=== PATIENT | male | born 1970 | race Caucasian/White ===

== ENCOUNTER → 2022-07-02 13:05 | Outpatient (BNVA) | payer BC, SELFPAY | PROVIDERS: PCP Internal Medicine; Visit Provider Psychiatry & Neurology Psychiatry | DX: Z13.89 Encounter for screening for other disorder (principal) ==

== ENCOUNTER 2023-02-18 13:50 | Outpatient (AMB) | payer BC, SELFPAY ==
--- NOTE | 2023-02-18 12:57 | MHC.OFFVISPS ---
Intake Intake Visit Reasons: depression Allergies ofloxacin [From FLOXIN] Allergy (Severe, Unverified 12/06/19 16:55) hallucinations Medication List - Last Reconciled 02/18/23 by Colin Hunt MD buspirone 15 mg PO DAILY clomipramine 25 mg PO BEDTIME HPI- Psychiatric Chief Complaint: depression HPI Narrative: Pt seen in f/u taking clomip 25 hs buspar 15 mg seems stable some cking issues at times he is much more cut off from worries re remains social ocd generally in ck relationships are appropriate no impulses does use social media has never finured out sexuality some periods of depression Sees dr liliam burch anxiety related issues Past Psychiatric History: Past history of psychiatric hospitalizations requiring ECT in the past history of severe depression and severely impairing OCD in the past Mental Status Exam Mental Status Exam Narrative: Mental Status Exam Narrative: Appearance: Casually dressed Behavior: Cooperative appropriate psychomotor: Within normal limits Speech: Normal volume and prosody Thought proccess logical and goal-directed Thought content: Future oriented no self-harming thoughts some regretful thoughts about his orientation have impacted his life Mood: flat Affect: Appropriate to mood full affect SI:denies HI:denies VH/AH:none Delusions: None Insight/judgment: Good insight and judgment Memory/cog: Intact Telehealth Telehealth Location of provider rendering services: practice address Location of patient: address on file Patient Identification confirmed using: Name, : Yes Telehealth method: video Patient verbally consented to treatment: Yes Patient verbally consented to billing insurance company: Yes Minutes spent on Phone/Video with Pt.: 29 Assessment and Plan Assessment & Plan (1) OCD (obsessive compulsive disorder): Status: Acute Code(s): F42.9 - Obsessive-compulsive disorder, unspecified (2) Major depression in full remission: Status: Acute Code(s): F32.5 - Major depressive disorder, single episode, in full remission Plan pt generally stable cont low-dose buspirone low-dose of Afrin ill patient does feel it is somewhat helpful as does not wish to dis continue Counseling and coordination of Care Pt. Self Management counseling: Maintenance-social rhythm, Sleep hygiene and Behavior activation Details-Self Mgmt counseling: Discussed issues related to object relations patient's identity and its affect on his life Details: I spent [] minutes reviewing the record, seeing the patient and documenting in the medical record. Counseling provided to the patient/caregiver as outlined below. Addressed patient/caregiver concerns regarding current medication regime including effective adherence. Addressed patient/caregiver concerns regarding diagnosis and prognosis including accuracy of diagnosis, prognosis over time, impact of diagnosis. Addressed patient/caregiver concerns regarding impact of recent stressors. [facility] Medical History (Updated 07/02/22 @ 16:08 by Colin Hunt MD) Major depression in full remission OCD (obsessive compulsive disorder) CKD (chronic kidney disease) SIADH (syndrome of inappropriate ADH production) Social History: works remotely not no child uncle 5 children Substance History: hx alcohol abuse Trauma History: none Coding Level of Care Code Est Pt Level 3 (74239) Therapy 30m w/E&M (15945) Diagnoses OCD (obsessive compulsive disorder) F42.9 Major depression in full remission F32.5
== END 2023-02-18 13:52 | disposition home or self-care (01) ==
LOC: HO.HOP 13:50
PROVIDERS: PCP Internal Medicine; Visit Provider Psychiatry & Neurology Psychiatry
DX: F42.9 Obsessive-compulsive disorder, unspecified (principal); F32.5 Major depressive disorder, single episode, in full remission
CPT/HCPCS: 90833; 99213

== ENCOUNTER → 2023-02-18 13:50 | Outpatient (BNVA) | payer BC, SELFPAY | PROVIDERS: PCP Internal Medicine; Visit Provider Psychiatry & Neurology Psychiatry ==

== ENCOUNTER 2023-09-06 14:07 | Outpatient (AMB) | payer BC, SELFPAY ==
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
== END 2023-09-06 15:09 | disposition home or self-care (01) ==
LOC: HO.HOP 14:07
PROVIDERS: PCP Internal Medicine; Visit Provider Psychiatry & Neurology Psychiatry
DX: F32.5 Major depressive disorder, single episode, in full remission (principal); F42.9 Obsessive-compulsive disorder, unspecified; N18.9 Chronic kidney disease, unspecified; F41.1 Generalized anxiety disorder
CPT/HCPCS: 90833; 99213

== ENCOUNTER → 2023-09-06 14:07 | Outpatient (BNVA) | payer BC, SELFPAY | PROVIDERS: PCP Internal Medicine; Visit Provider Psychiatry & Neurology Psychiatry ==

== ENCOUNTER 2024-04-16 14:02 | Outpatient (AMB) | payer BC, SELFPAY ==
--- NOTE | 2024-04-16 14:44 | MHC.OFFVISPS ---
Intake Intake Visit Reasons: depression Allergies ofloxacin [From FLOXIN] Allergy (Severe, Unverified 12/06/19 16:55) hallucinations Medication List - Last Reconciled 04/16/24 by Colin Hunt MD buspirone 15 mg PO DAILY clomipramine 25 mg PO BEDTIME HPI- Psychiatric Chief Complaint: depression HPI Narrative: Patient seen psychiatric follow-up. The patient did have a significant episode of obsessional anxiety catastrophic thinking related to recent election. This lasted a number of weeks and spontaneously remitted. He does still see Dr. Demetrius Fink On 1 of the medications he was on vacation with his family had a sense of derealization on reality intrusive thoughts which he did not wish to fully elucidate. He stated these remitted. Patient has stayed on BuSpar 15 mg daily clomipramine 25 mg bedtime we have discussed this may not be a therapeutic dose Past Psychiatric History: Past history of psychiatric hospitalizations requiring ECT in the past history of severe depression and severely impairing OCD in the past Mental Status Exam Mental Status Exam Patient Appearance: Well Grooomed Patient Orientation: Person, Place, Time and Situation Level of Consciousness: Awake and Appropriate Patient Behavior: Appropriate Mood Description: Calm and Anxious Affect Description: Apathetic and Constricted Ability to Follow Directions: Excellent Speech Pattern: Clear Memory Description: Intact Hallucinations: None Delusions: Not Present Judgement: Good Assessment and Plan Assessment & Plan (1) OCD (obsessive compulsive disorder): Status: Acute Code(s): F42.9 - Obsessive-compulsive disorder, unspecified Plan consider luvox if symptoms were to recur discussed that present dosing is not really most likely in the therapeutic range he did not wish to increase dosing felt he had side effects on increase clomipramine in the past. He did L multiple antidepressant treatments in the past. At 1 point he did require ongoing ECT including maintenance Medications: Refilled buspirone 15 mg PO DAILY 90 tabs 1RF clomipramine 25 mg PO BEDTIME 90 caps 1RF Counseling and coordination of Care Details-Self Mgmt counseling: Issues related to managing intrusive anxiety and this diagnosis Medication management counseling: Effectiveness, Side effects and Dosing range Diagnosis and Prognosis Counseling: Impact of diagnosis on life functions, Problematic behaviors secondary to diagnosis and Adequacy of current interventions Details: I spent [40] minutes reviewing the record, seeing the patient and documenting in the medical record. Counseling provided to the patient/caregiver as outlined below. Addressed patient/caregiver concerns regarding current medication regime including effective adherence. Addressed patient/caregiver concerns regarding diagnosis and prognosis including accuracy of diagnosis, prognosis over time, impact of diagnosis. Addressed patient/caregiver concerns regarding impact of recent stressors. [facility] Medical History (Updated 09/06/23 @ 14:34 by Colin Hunt MD) Generalized anxiety disorder Major depression in full remission OCD (obsessive compulsive disorder) CKD (chronic kidney disease) SIADH (syndrome of inappropriate ADH production) Social History: works remotely not no child uncle 5 children Substance History: hx alcohol abuse Trauma History: none Coding Level of Care Code Est Pt Level 3 (05671) Therapy 30m w/E&M (21153) Diagnoses OCD (obsessive compulsive disorder) F42.9
--- OUTSIDE RECORDS SUMMARY | 2024-04-16 18:32 | XMS_ITS | Clinical Summary ---
Author Organization [facility] [employer] Address [address] [facility] [place] [address] Care Team Providers Care Crewman Armoured Personnel Carrier M113 Name Role Phone Fito Martino MD Primary Care Provider [phone] Allergies No known active allergies Medications busPIRone (BUSPAR) 15 MG tablet 04/01/2023 Active cholecalciferol , vitamin D3, 50 mcg (2,000 unit) Take by mouth Active clomiPRAMINE (ANAFRANIL) 25 MG capsule Take 1 capsule (25 mg total) by mouth 02/07/2019 Active HYDROcodone-jann atropine (HYCODAN) 5-1.5 mg/5 mL syrup TAKE 5 ML BY MOUTH EVERY 8 (EIGHT) HOURS NEEDED. PT. MAY REQUEST PARTIAL FILL 02/25/2023 Active mometasone (NASONEX) 50 mcg/actuation nasal spray Instill 2 sprays into each nostril 05/07/2020 Active Immunizations Name Administration Dates Next Due Flublok Trivalent Prefilled Syringe (18+ years) 01/23/2020 Flucelvax Trivalent PFS IM; Without Preservative (18+ mos) 01/24/2018 Fluzone Trivalent Prefilled Syringe (18+ months) 04/02/2023 Moderna Spikevax Covid-19 SDV (12+years) 024 Social History Tobacco Use Types Packs/Day Years Used Date Smoking Tobacco: Never Smokeless Tobacco: Never Sex and Gender Information Value Date Recorded Sex Assigned at Not on file Legal Sex Male 1:58 PM EST Gender Identity Not on file Sexual Orientation Not on file Last Filed Vital Signs Vital Sign Reading Time Taken Comments Blood Pressure - - Pulse 78 11/10/2020 10:10 AM EDT Temperature 36.5 ??C (97.7 ??F) 11/10/2020 10:10 AM E DT Respiratory Rate - - Oxygen Saturation 100% 11/10/2020 10:10 AM EDT Inhaled Oxygen Concentration - - Weight - - Height - - Body Mass Index - - Plan of Treatment Health Maintenance Due Date Last Done Comments Colorectal Cancer: COLONOSCOPY Screening every 10 yrs (or Modifier) 1969 Depression: Screening Annually using PHQ-2/9 in Adults 18 yrs or above (or HM Modifier)([facility]) 08/08/1987 SDOH Screening Reminder: Annually for all adults ([facility]) 08/08/1987 Tobacco Smoking Cessation: i n Adults excluding Women: Behavioral and Pharmacotherapy Interventions ([facility]) 08/08/1987 Colorectal Cancer Screening 45 -75 Yrs (or HM Modifier) 2014 Colorectal Cancer: FLEXIBLE SIGMOIDOSCOPY Screening every 5 yrs 2014 Colorectal Cancer: Fecal Immunochemical Test (FIT) Annually [facility] 2014 Colorectal Cancer: High-sensitivity gFOBT Screening Annually [facility] 2014 Colorectal Cancer: Stool Cologuard Screening every 3 yrs 2014 Colorectal Cancer:CT Colonography Screening every 5 yrs 2014 Zoster/Shingles Vaccine Series Screening: Adults aged 18+ yrs (or HM Modifiers)([facility]) (1 of 2) 08/08/2019 DTaP/Tdap/Td Vaccines ([facility]) (2 - Td or Tdap) 09/14/2023 09/13/2013 Flu Vaccination: Yearly for ages 18mos through 64 years (or Modifier)([facility]) 10/20/2023 04/02/2023, 01/26/2022, 01/23/2020, Additional history exists COVID-19 Vaccine Screening: Initial Series and Booster Status ([facility]) (2023- season) 2023 04/02/2023, 07/26/2020, 06/25/2020 Lipid Screening: Every 5 yrs for Men aged 35+ (or HM Modifier) ([facility]) 10/06/2027 10/05/2022 Hepatitis C Virus Infection in Adolescents and Adults: Screening (or Modifier) ([facility]) Completed 10/05/2022 Pneumococcal Vaccination Screening: Pts 0-19 & 19-64 yrs of age ([facility]) Aged Out No longer eligible based on patient's age to complete this topic Medical Devices Not on file Insurance [facility] Care Teams Crewman Armoured Personnel Carrier M113 Relationship Specialty Start Date End Date Fito Martino MD [address] [id number] PCP - Produce Team Member 01/24/18
--- OUTSIDE RECORDS SUMMARY | 2024-04-16 18:32 | XMS_ITS | Clinical Summary ---
Author Organization [facility], Address [address] [facility] [address] [place] [address] Phone Care Team Providers Care Experimental Rocket Sled Mechanic Name Role Phone Fito Martino MD Primary Care Provider [phone] Allergies Active Allergy Reactions Criticality Noted Date Comments Ciprofloxacin Other (see comments) High 06/18/2016 Other reaction(s): Hallucinations Ofloxacin Other (see comments) 05/03/2019 Medications busPIRone (BUSPAR) 15 MG tablet 0 Active clomiPRAMINE (ANAFRANIL) 25 MG capsule 9 Active mometasone (Nasonex) 50 MCG/ACT nasal spray Administer 2 sprays into each nostril 1 (one) time each day 17 g 11 1 Active Cholecalciferol 50 MCG (2000 UT) capsule Take by mouth daily Active Active Problems Problem Noted Date Diagnosed Date Essential (primary) hypertension 10/31/2023 Renal failure syndrome 10/06/2021 Stage 3a chronic kidney disease 05/07/2020 Hypo-osmolality and hyponatremia 10/25/2019 Vitamin D deficiency 02/28/2017 Overview (05/03/2019): Last Assessment & Plan: He often forgets to take it. I reminded him to get back on it. Resolved Problems Problem Noted Date Diagnosed Date Resolved Date Sinusitis 05/07/2020 09/11/2020 Chronic low back pain 12/21/20182020 Overview (05/03/2019): Needs PT. Work on ergonomics on the job Shoulder pain 03/28/2018 04/25/2020 Chronic kidney disease stage 3 02/28/2017 09/11/2020 Depressive disorder 02/28/2017 04/25/19 21 Overview (05/03/2019): Had transcranial magnet and ECT therapy. Sees dr Gt Hunt for psychiatry Last Assessment & Plan: Medically stable for ECT. Dyslipidemia 02/28/2017 09/11/2020 Overview (05/03/2019): Last Assessment & Plan: recheck Gastroesophageal reflux disease 02/28/2017 04/25/2020 Hypochondriasis 02/28/2017 04/25/2020 Lymphedema 02/28/2017 09/11/2020 Overview (05/03/2019): Since his teenager years, dx at [facility] Last Assessment & Plan: Stable, uses compression stockings. 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 (05/03/2019): Osteochondritis dissecans Immunizations Name Administration Dates Next Due Influenza (IM) Preservative Free 02/06/2016 Influenza Split High Dose Preservative Free IM 1 Influenza, MDCK, PF, Quadrivalent 01/24/2018 Influenza, Quadrivalent, Preservative Free 04/19,04/07/2012 Influenza, Recombinant, Quadrivalent, Pf 020,12/21/2018 Moderna SARS-COV-2 07/26/2020,06/25/2020 Tdap 09/13/2013 Family History Medical History Relation Comments Cancer Father lung Dementia Father grandparents Hypertension Father Heart disease Mother grandfather Hypertension Mother grandmother Relation Status Comments Father Mother Alive Social History Tobacco Use Types Packs/Day Years Used Date Smoking Tobacco: Never Alcohol Use Standard Drinks/Week Comments No 0 (1 standard drink = 0.6 oz pure alcohol) Alcoholic Drinks/day: 3 or more drinks per day Sex and Gender Information Value Date Recorded Sex Assigned at Not on file Legal Sex Male 4:36 PM EST Gender Identity Not on file Sexual Orientation Not on file Last Filed Vital Signs Vital Sign Reading Time Taken Comments Blood Pressure 110/70 05/03/2019 1:55 PM EST Pulse - - Temperature - - Respiratory Rate - - Oxygen Saturation - - Inhaled Oxygen Concentration - - Weight 90.7 kg (200 lb) 05/03/2019 1:55 PM EST Height 182.9 cm (6') 11/02/2018 12:00 PM EDT Body Mass Index 27.12 11/02/2018 12:00 PM EDT Plan of Treatment Health Maintenance Due Date Last Done Comments Pneumococcal Vaccine: Pediat rics (0 to 5 Years) and At-Risk Patients (6 to 64 Years) (1 of 2 - PCV) 08/08/1975 Hepatitis B Vaccine (1 of 3 - 19+ 3-dose series) 1988 Colorectal Cancer Screening: Annual FOBT 2018 Colorectal Cancer Screening: Colonoscopy 2018 Colorectal Cancer Screening: Sigmoidoscopy 2018 Influenza Vaccine (#1) 2023 4, 01/26/2022, 01/23/2020, Additional history exists Insurance [facility] Care Teams Experimental Rocket Sled Mechanic Relationship Specialty Start Date End Date Fito Martino MD [address] [place] [address], [address] [place] [address] PCP - General 01/23/19
--- OUTSIDE RECORDS SUMMARY | 2024-04-16 18:32 | XMS_ITS | Encounter Summary ---
Author Organization [facility], Address [address] [place] [address] Phone Care Team Providers Care Storage And Backup Administrator Name Role Phone Fito Martino MD Primary Care Provider [phone] Encounter Details Date Type Department Care Team (Late st Contact Info) Description 10/08/2021 Office Communication [facility], [address] [place] [phone] Benito Peck MD [address] [place] [phone] Social History Tobacco Use Types Packs/Day Years [...] on file Sexual Orientation Not on file COVID-19 Exposure Response Date Recorded In the last 10 days, have yo u been in contact with someone who was confirmed or suspected to have Coronavirus/COVID-19? No / Unsure 10/08/2021 2:20 PM EDT documented as of this encounter Miscellaneous Notes * Telephone Encounter - Tracy Shahid - 10/09/2021 12:25 PM EDT done documented in this encounter Plan of Treatment Not on file documented as of this encounter Visit Diagnoses Not on filedocumented in this encounter Care Teams Storage And Backup Administrator Relationship Specialty Start Date End Date Fito Martino MD [address] [place] [address], [address] [place], [place] [phone] PCP - General 01/23/19 documented as of this encounter
== END 2024-04-16 14:36 | disposition home or self-care (01) ==
LOC: HO.HOP 14:02
PROVIDERS: PCP Internal Medicine; Visit Provider Psychiatry & Neurology Psychiatry
DX: F42.9 Obsessive-compulsive disorder, unspecified (principal)
CPT/HCPCS: 90833; 99213

== ENCOUNTER → 2024-04-16 14:02 | Outpatient (BNVA) | payer BC, SELFPAY | PROVIDERS: PCP Internal Medicine; Visit Provider Psychiatry & Neurology Psychiatry ==

== ENCOUNTER 2024-07-30 15:33 | Outpatient (AMB) | payer BC, SELFPAY ==
--- NOTE | 2024-07-30 13:58 | MHC.OFFVISPS ---
Intake Intake Visit Reasons: depression Allergies ofloxacin [From FLOXIN] Allergy (Severe, Unverified 12/06/19 16:55) hallucinations HPI- Psychiatric Chief Complaint: depression HPI Narrative: Pt anafranil inc 50 mg buspar 15 bid last appointment has had increased intrusive OCD anxiety symptoms. He is worried he would need ECT again. This did help significantly in the past. Patient has talk with work regarding some increase in symptoms no SI but has been interfering with work. He is seeing a new OCD type therapist which has a different process than traditional CBT. Patient had [place] Bactrim of different classes Past Psychiatric History: Past history of psychiatric hospitalizations requiring ECT in the past history of severe depression and severely impairing OCD in the past Mental Status Exam Mental Status Exam Narrative: Mental Status Exam Narrative: Appearance: Casually dressed somewhat sad looking Behavior: Cooperative appropriate psychomotor: Within normal limits Speech: Normal volume and prosody Thought proccess logical and goal-directed perseverative Thought content: Future oriented no self-harming thoughts intrusive thoughts that he may be arrested catastrophic intrusive thoughts Mood: anxious Affect: Appropriate to mood constricted SI:denies sense of hopelessness at times HI:denies VH/AH:none Delusions: None has overvalued ideas Insight/judgment: Good insight and judgment Memory/cog: Intact Telehealth Telehealth Telehealth Platform: [facility] Location of provider rendering services: practice address Location of patient: address on file Patient Identification confirmed using: Name, : Yes Telehealth method: video Patient verbally consented to treatment: Yes Patient verbally consented to billing insurance company: Yes Minutes spent on Phone/Video with Pt.: 31 Assessment and Plan Assessment & Plan (1) OCD (obsessive compulsive disorder): Status: Acute Code(s): F42.9 - Obsessive-compulsive disorder, unspecified Plan Pt resistant to inc medication secondary to lack of sexual fx has intrusive anxious ruminations related to past material that he had seen on a computer of his many many years ago. This is recurrence for prior obsessional fear. His trying a new type of OCD psychotherapy he is still seeing Demetrius Fink. Continues to work remotely. His mother had also recent L which may have triggered some symptoms increase Anafranil different 50 mg daily Viagra prescribed risks benefits alternatives reviewed potential side effects reviewed. BuSpar increased to b.i.d. Medications: New lorazepam 0.5 - 1 mg (0.5 - 1 x 1 mg) PO DAILY PRN 14 tabs 0RF anxiety sildenafil (Viagra) administer 30 minutes to 4 hours before activity 25 mg PO DAILY PRN 14 tabs 1RF sexual activity Changed From clomipramine 25 mg PO BEDTIME 90 caps 1RF To clomipramine 50 mg (2 x 25 mg) PO BEDTIME 60 caps 1RF From buspirone 15 mg PO DAILY 90 tabs 1RF To buspirone 15 mg PO BID 180 tabs 1RF Counseling and coordination of Care Details-Self Mgmt counseling: Issues related to accepting treatment dealing with the of hopelessness helplessness Medication management counseling: Effectiveness, Side effects and Dosing range Diagnosis and Prognosis Counseling: Impact of diagnosis on life functions, Problematic behaviors secondary to diagnosis and Adequacy of current interventions Details: I spent [40] minutes reviewing the record, seeing the patient and documenting in the medical record. Counseling provided to the patient/caregiver as outlined below. Addressed patient/caregiver concerns regarding current medication regime including effective adherence. Addressed patient/caregiver concerns regarding diagnosis and prognosis including accuracy of diagnosis, prognosis over time, impact of diagnosis. Addressed patient/caregiver concerns regarding impact of recent stressors. [facility] Medical History (Updated 09/06/23 @ 14:34 by Colin Hunt MD) Generalized anxiety disorder Major depression in full remission OCD (obsessive compulsive disorder) CKD (chronic kidney disease) SIADH (syndrome of inappropriate ADH production) Social History: works remotely not no child uncle 5 children Substance History: hx alcohol abuse Trauma History: none Coding Level of Care Code Est Pt Level 4 (80579) Diagnoses OCD (obsessive compulsive disorder) F42.9
--- OUTSIDE RECORDS SUMMARY | 2024-07-30 15:35 | XMS_ITS | Encounter Summary ---
Author Organization [facility], Address [address] [place] [address] Phone Care Team Providers Care Outpatient Clerk Name Role Phone Fito Martino MD Primary Care Provider [phone] Encounter Details Date Type Department Care Team (Late st Contact Info) Description 10/08/2021 Office Communication [facility], [address] [phone] Benito Peck MD [address] [place] [phone] Social History Tobacco Use Types Packs/Day Years [...] on filedocumented in this encounter Care Teams Outpatient Clerk Relationship Specialty Start Date End Date Fito Martino MD [address] [place] [address], [address] [place], [place] [phone] PCP - General 01/23/19 documented as of this encounter
--- OUTSIDE RECORDS SUMMARY | 2024-07-30 15:35 | XMS_ITS | Clinical Summary ---
Author Organization [facility], Address [address] [place] [address] Phone Care Team Providers Care Seismograph Helper Name Role Phone Fito Martino MD Primary Care Provider [phone] Allergies Active Allergy Reactions Criticality Noted Date [...] (05/03/2019): Since his teenager years, dx at [facility]. Last Assessment & Plan: Stable, uses compression stockings. 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 (05/03/2019): Osteochondritis dissecans Immunizations Immunization Administration Dates Next Due Influenza (IM) Preservative [...] Health Maintenance Due Date Last Done Comments Hepatitis B Vaccine (1 of 3 - 19+ 3-dose series) 1988 Pneumococcal Vaccine: 50+ Ye ars (1 of 2 - PCV) 1988 Colorectal Cancer Screening: Annual FOBT 2018 Colorectal Cancer Screening: Colonoscopy 2018 Colorectal Cancer Screening: Sigmoidoscopy 2018 Influenza Vaccine (Season Ended) 2024 04/02/2023, 01/26/2022, 01/23/2020, Additional history exists Insurance [facility] Care Teams Seismograph Helper Relationship Specialty Start Date End Date Fito Martino MD [address], [address] [place], [place] [id number] PCP - General 01/23/19
== END 2024-07-30 15:35 | disposition home or self-care (01) ==
LOC: HO.HOP 15:33
PROVIDERS: PCP Internal Medicine; Visit Provider Psychiatry & Neurology Psychiatry
DX: F42.9 Obsessive-compulsive disorder, unspecified (principal)
CPT/HCPCS: 99214

== ENCOUNTER → 2024-07-30 15:33 | Outpatient (BNVA) | payer BC, SELFPAY | PROVIDERS: PCP Internal Medicine; Visit Provider Psychiatry & Neurology Psychiatry ==

== ENCOUNTER 2024-10-17 17:36 | Outpatient (AMB) | payer BC, SELFPAY ==
--- NOTE | 2024-10-17 14:41 | MHC.OFFVISPS ---
Intake Intake Visit Reasons: depression Allergies ofloxacin (From FLOXIN) Allergy (Severe, Unverified 12/06/19 16:55) hallucinations HPI- Psychiatric Chief Complaint: depression HPI Narrative: 07/30/24 Pt anafranil inc 50 mg buspar 15 bid last appointment has had increased intrusive OCD anxiety symptoms. He is worried he would need ECT again. This did help significantly in the past. Patient has talk with work regarding some increase in symptoms no SI but has been interfering with work. He is seeing a new OCD type therapist which has a different process than traditional CBT. Patient had failed [place] of [place] Bactrim of different classes Past Psychiatric History: Past history of psychiatric hospitalizations requiring ECT in the past history of severe depression and severely impairing OCD in the past Mental Status Exam Mental Status Exam Narrative: Mental Status Exam Narrative: Appearance: Casually dressed Behavior: Cooperative appropriate psychomotor: Within normal limits Speech: Normal volume and prosody Thought proccess logical and goal-directed perseverative Thought content: Future oriented no self-harming thoughts no longer having the intrusive catastrophic thoughts Mood: Blunted Affect: Appropriate to mood constricted SI:denies sense of hopelessness at times HI:denies VH/AH:none Delusions: None has overvalued ideas Insight/judgment: Good insight and judgment Memory/cog: Intact Telehealth Telehealth Telehealth Platform: [facility] Location of provider rendering services: practice address Location of patient: address on file Patient Identification confirmed using: Name, : Yes Telehealth method: video Patient verbally consented to treatment: Yes Patient verbally consented to billing insurance company: Yes Minutes spent on Phone/Video with Pt.: 29 Assessment and Plan Assessment & Plan (1) OCD (obsessive compulsive disorder): Status: Acute Code(s): F42.9 - Obsessive-compulsive disorder, unspecified Plan Patient will continue on clomipramine unclear why he has cycled he likes to continue on clomipramine 50 BuSpar 15 b.i.d. lorazepam PRN. Patient aware of hypo orthostatic hypotension possibilities with Anafranil continue present plan of care Medications: Changed From clomipramine 50 mg (2 x 25 mg) PO BEDTIME 60 caps 1RF To clomipramine 50 mg (2 x 25 mg) PO BEDTIME 180 caps 1RF 90 days Refilled buspirone 15 mg PO BID 180 tabs 1RF lorazepam 0.5 - 1 mg (0.5 - 1 x 1 mg) PO DAILY PRN 20 tabs 1RF anxiety Discontinued sildenafil administer 30 minutes to 4 hours before activity Discontinued Reason: Doctor's Order 25 mg PO DAILY PRN 14 tabs 1RF sexual activity Counseling and coordination of Care Pt. Self Management counseling: Breathing and Cognitive restructuring Details-Self Mgmt counseling: Issues related to managing condition maintaining quality of life and the varied nature of when he goes into remission Medication management counseling: Effectiveness, Side effects and Dosing range Diagnosis and Prognosis Counseling: Accuracy of diagnosis and Impact of diagnosis on life functions Details: I spent [38] minutes reviewing the record, seeing the patient and documenting in the medical record. Counseling provided to the patient/caregiver as outlined below. Addressed patient/caregiver concerns regarding current medication regime including effective adherence. Addressed patient/caregiver concerns regarding diagnosis and prognosis including accuracy of diagnosis, prognosis over time, impact of diagnosis. Addressed patient/caregiver concerns regarding impact of recent stressors. [facility] Medical History (Updated 09/06/23 @ 14:34 by Colin Hunt MD) Generalized anxiety disorder Major depression in full remission OCD (obsessive compulsive disorder) CKD (chronic kidney disease) SIADH (syndrome of inappropriate ADH production) Social History: works remotely not no child uncle 5 children Substance History: hx alcohol abuse Trauma History: none Coding Level of Care Code Tele Est Pt Level 3 (98386) Therapy 30m w/E&M (09973) Diagnoses OCD (obsessive compulsive disorder) F42.9
== END 2024-10-17 17:36 | disposition home or self-care (01) ==
LOC: HO.HOP 17:36
PROVIDERS: PCP Internal Medicine; Visit Provider Psychiatry & Neurology Psychiatry
DX: F42.9 Obsessive-compulsive disorder, unspecified (principal)
CPT/HCPCS: 90833; 99213

== ENCOUNTER 2025-03-08 17:16 | Outpatient (AMB) | payer BC, SELFPAY ==
--- NOTE | 2025-03-08 12:39 | MHC.OFFVISPS ---
Intake Intake Visit Reasons: depression Allergies ofloxacin (From FLOXIN) Allergy (Severe, Unverified 12/06/19 16:55) hallucinations HPI- Psychiatric Chief Complaint: depression HPI Narrative: Pt seen in f/u had been ok till visit to [place] over thankgiving flew down had irrational preocupations The patient verbally consented to this video encounter. This video encounter was conducted via secure, interactive video conferencing. The patient's identity was established before proceeding with the video encounter by confirmation of their name and an additional identifier. Reason for Visit: Follow-up on obsessive-compulsive disorder (OCD) symptoms. Subjective: The patient, with a history of obsessive-compulsive disorder (OCD), is experiencing exacerbation of symptoms related to travel and being out of their comfort zone. The patient reports that their OCD symptoms become prominent during trips away from home, such as recent visits to [place] and a previous trip to [place]. These episodes are characterized by irrational fears and obsessions, including concerns about being targeted after a podcast appearance. The patient notes that the symptoms are less controllable when out of routine and involve feelings of depersonalization and anxiety, particularly in crowded or unfamiliar settings. The patient finds relief upon returning home. The patient is currently taking Clomipramine 50 mg twice daily and Buspirone 15 mg twice daily. They also have a prescription for Ativan, which they use infrequently for acute episodes. The patient reports longstanding issues with anxiety and depersonalization since high school and notes no significant changes in medical history in recent months. They work remotely and have a stable job. The patient does not report any significant family history related to their condition. Objective: Awake and alert. Not in acute respiratory distress. Appropriate mood and affect. Past Psychiatric History: Past history of psychiatric hospitalizations requiring ECT in the past history of severe depression and severely impairing OCD in the past Mental Status Exam Mental Status Exam Narrative: Patient casually dressed mood anxious somewhat constricted. Patient is somewhat ruminating denies self-harming thoughts. Concentration was intact logical goal-directed impulse control intact Assessment and Plan Assessment & Plan (1) OCD (obsessive compulsive disorder): Status: Acute Code(s): F42.9 - Obsessive-compulsive disorder, unspecified (2) CKD (chronic kidney disease): Status: Acute Code(s): N18.9 - Chronic kidney disease, unspecified Plan Patient has had a couple of episodes where he cycled into significant OCD symptoms but then did eventually cycle. Patient unclear if related to medication or not but agreeable to staying on current regimen in the past has been quite ill and disabled by his OCD symptoms. The patient, with a history of OCD, presents with exacerbated symptoms during travel and situations outside of their routine. The symptoms include irrational fears and heightened anxiety, likely related to being outside their comfort zone. The patient has been managing these symptoms with Clomipramine and Buspirone, with occasional use of Ativan for acute anxiety. The patient's symptoms have stabilized since returning home, which aligns with their pattern of anxiety relief upon re-establishing routine. Plan: - Continue Clomipramine 50 mg twice daily and Buspirone 15 mg twice daily. - Use Ativan as needed for acute anxiety episodes, ensuring limited use. - Encourage exposure to short, controlled trips to gradually increase comfort with being away from home. - Continue working with the patient's therapist on ICBT and other therapeutic techniques. - Follow up in three months to reassess symptoms and treatment efficacy. - Patient advised to try grounding and breathing exercises during acute anxiety episodes. - Discussed possibility of an EEG if dissociative symptoms increase in frequency or severity. Actions Video encounter Resume Note Refine with [employer] Changes Update PronounsMore detailedLess detailedAdd billing codes Suggest a change Update Medications: Refilled buspirone 15 mg PO BID 180 tabs 1RF clomipramine 50 mg (2 x 25 mg) PO BEDTIME 180 caps 1RF 90 days Counseling and coordination of Care Details: I spent [] minutes reviewing the record, seeing the patient and documenting in the medical record. Counseling provided to the patient/caregiver as outlined below. Addressed patient/caregiver concerns regarding current medication regime including effective adherence. Addressed patient/caregiver concerns regarding diagnosis and prognosis including accuracy of diagnosis, prognosis over time, impact of diagnosis. Addressed patient/caregiver concerns regarding impact of recent stressors. [facility] Medical History (Updated 09/06/23 @ 14:34 by Colin Hunt MD) Generalized anxiety disorder Major depression in full remission OCD (obsessive compulsive disorder) CKD (chronic kidney disease) SIADH (syndrome of inappropriate ADH production) Social History: works remotely not no child uncle 5 children Substance History: hx alcohol abuse Trauma History: none Coding Level of Care Code Tele Est Pt Level 4 (79194) Diagnoses OCD (obsessive compulsive disorder) F42.9 CKD (chronic kidney disease) N18.9
--- OUTSIDE RECORDS SUMMARY | 2025-03-08 17:17 | XMS_ITS | Clinical Summary ---
Author Organization [facility], Address [address] [address] Phone Care Team Providers Care Wedding Decorator Name Role Phone Fito Martino MD Primary Care Provider [phone] Allergies Active Allergy Reactions Criticality Noted Date [...] PT. Work on ergonomics on the job Pain of shoulder region 03/28/201807/2020 Chronic kidney disease stage 3 02/28/2017 09/11/2020 Depressive disorder 02/28/2017 04/25/19 21 Overview (05/03/2019): Had transcranial magnet and ECT therapy. Sees dr Gt Hunt for psychiatry Last Assessment & Plan: Medically stable for ECT. Dyslipidemia 02/28/2017 09/11/2020 Overview (05/03/2019): Last Assessment & Plan: recheck Gastroesophageal reflux disease 02/28/2017 04/25/2020 Hypochondriasis 02/28/2017 04/25/2020 Lymphedema 02/28/2017 09/11/2020 Overview (05/03/2019): Since his teenager years, dx at [facility]. Last Assessment & Plan: Stable, uses compression [...] Cancer Screening: Sigmoidoscopy 2018 Influenza Vaccine (#1) 2024 4, 01/26/2022, 01/23/2020, Additional history exists Insurance [facility] Care Teams Wedding Decorator Relationship Specialty Start Date End Date Fito Martino MD [address] [place], [place] [phone] PCP - General 01/23/19
== END 2025-03-08 17:16 | disposition home or self-care (01) ==
LOC: HO.HOP 17:16
PROVIDERS: PCP Internal Medicine; Visit Provider Psychiatry & Neurology Psychiatry
DX: F42.9 Obsessive-compulsive disorder, unspecified (principal); N18.9 Chronic kidney disease, unspecified
CPT/HCPCS: 99214